=== PATIENT | female | born 1960 | race African-American/Black ===

== ENCOUNTER 2020-02-29 03:11 | Observation (INO) ==
[2020-02-29] MEDS ORDERED: SODIUM CHLORIDE 0.9% 1,000 ML IV STA (03:35)
[2020-02-29] MEDS ORDERED: ALUM/MAG/SIMETH/LIDO VISC 1:1 30 ML BOTTLE PO ONE (04:04)
[2020-02-29] MEDS ORDERED: ALUM/MAG/SIMETH/LIDO VISC 1:1 30 ML BOTTLE PO STA (04:07)
[2020-02-29 04:09] LABS: Basophils % 0.3 % (0.0-0.8); Eosinophils % 0.3 % (0.00-10.9); Hematocrit 34.5 VOL% (35.7-47.0); Hemoglobin 10.9 GM/DL (12.0-16.0); Immature Granulocytes % 0.3 %; Immature Granulocytes Absolute 0.03 #; Lymphocytes # 1.6 10*3/uL (1.4-4.0); Lymphocytes % 17.6 % (21.3-54.2); Mean Corpuscular HGB Conc 31.6 GM/DL (32-36); Mean Corpuscular Volume 73.6 FL (87-102); Mean Platelet Volume 10.6 FL (9.6-12.0); Monocytes % 8.4 % (1.7-12.7); Neutrophils % 73.1 % (38.7-73.9); Platelet Count 191 T/CUMM (130-400); Red Blood Count 4.69 MC/CUMM (3.8-5.5); Red Cell Distribution Width 15.4 % (9.3-17.3); White Blood Count 9.2 T/CUMM (4-12)
[2020-02-29 04:30] LABS: Alanine Aminotransferase 41 U/L (13-56); Albumin 3.5 G/DL (3.4-5.0); Alkaline Phosphatase 74 U/L (45-117); Aspartate Amino Transferase 35 U/L (0-37); Bilirubin,Total < 0.39 MG/DL (0.2-1.0); Blood Urea Nitrogen 15 MG/DL (7-18); Calcium 8.4 MG/DL (8.5-10.1); Estimated Glom Filtration Rate 91 ML/MIN; Glucose 121 MG/DL (74-106); Osmolality,Calculated 276.7 MOS/KG (273-304); Total Protein 6.7 G/DL (6.4-8.3)
[2020-02-29 04:33] LABS: INR 1.1; PT Patient Result 11.4 SECS (9.8-11.9)
[2020-02-29] MEDS ORDERED: NITROGLYCERIN SL 0.4 MG TABLET SL STA (04:54)
[2020-02-29 04:59] LABS: Lymphocytes 14 % (20-55); Segmented Neutrophils 79 % (50-85); Total Cells Counted 100
[2020-02-29] MEDS ORDERED: MAGNESIUM GLUCONATE 500 MG TABLET PO ONE (05:00)
[2020-02-29 05:01] LABS: Anisocytosis 1+; Platelet Estimate Normal; Target Cells Few
[2020-02-29] MEDS ORDERED: ALUM/MAG/SIMETH/LIDO VISC 1:1 30 ML BOTTLE PO PRN (08:39)
[2020-02-29] MEDS ORDERED: GLUCAGON 1 MG VIAL IM PRN (08:39)
[2020-02-29] MEDS ORDERED: NITROGLYCERIN SL 0.4 MG TABLET SL PRN (08:39)
[2020-02-29] MEDS ORDERED: ONDANSETRON 4 MG/2 ML VIAL IV PRN (08:39)
[2020-02-29] MEDS ORDERED: DEXTROSE 10% 250 ML BAG IV PRN (08:39)
[2020-02-29] MEDS ORDERED: ACETAMINOPHEN 325 MG TABLET PO PRN (08:39)
[2020-02-29] MEDS ORDERED: MAGNESIUM SULF RIDER 2 GM in PREMIX 1 EACH IV PRN (08:39)
[2020-02-29] MEDS ORDERED: MAGNESIUM SULF RIDER 4 GM in PREMIX 1 EACH IV PRN (08:39)
[2020-02-29 09:15] LABS: % Iron Saturation 14.6 % (18-50); Ferritin 347.9 ng/ml (8-252)
[2020-02-29] MEDS: PANTOPRAZOLE 40 MG TABLET PO SCH (09:58)
[2020-02-29] MEDS: ENOXAPARIN 40 MG/0.4 ML SYRINGE SUBCUT SCH (09:58)
[2020-02-29] MEDS ORDERED: ASPIRIN EC 325 MG TABLET PO ONE (11:46)
[2020-02-29] MEDS ORDERED: IRON SUCROSE 200 MG in SODIUM CHLORIDE 0.9% 100 ML IV ONE (12:00)
[2020-02-29] MEDS ORDERED: MORPHINE 4 MG/1 ML VIAL IV PRN (12:45)
[2020-02-29] MEDS ORDERED: KETOROLAC 30 MG/1 ML VIAL IV ONE (12:47)
[2020-02-29] MEDS: ASCORBIC ACID 500 MG TABLET PO SCH ×2 (13:20→20:48)
[2020-02-29] MEDS: ATORVASTATIN 20 MG TABLET PO SCH (13:21)
[2020-02-29] MEDS: GABAPENTIN 100 MG CAPSULE PO SCH ×2 (16:39→20:48)
[2020-02-29] MEDS: ACETAMINOPHEN 325 MG TABLET PO SCH ×2 (16:39→20:47)
[2020-03-01 07:04] LABS: Calcium 8.8 MG/DL (8.5-10.1); Osmolality,Calculated 275.4 MOS/KG (273-304); Risk Ratio 1.73; VLDL CHOLESTEROL 9.6 MG/DL
[2020-03-01 08:11] VITALS: BP 121/67
[2020-03-01] MEDS ORDERED: POTASSIUM CHLORIDE 20 MEQ TABLET PO ONE (08:27)
[2020-03-01] MEDS: ENOXAPARIN 40 MG/0.4 ML SYRINGE SUBCUT SCH (08:50)
[2020-03-01] MEDS: GABAPENTIN 100 MG CAPSULE PO SCH ×2 (08:51→18:36)
[2020-03-01] MEDS: ACETAMINOPHEN 325 MG TABLET PO SCH (08:51)
[2020-03-01] MEDS: PANTOPRAZOLE 40 MG TABLET PO SCH (08:51)
[2020-03-01] MEDS: ATORVASTATIN 20 MG TABLET PO SCH (08:51)
[2020-03-01] MEDS ORDERED: METOPROLOL TARTRATE 25 MG TABLET PO SCH (09:00)
[2020-03-01] MEDS ORDERED: ASPIRIN EC 81 MG TABLET PO SCH (09:00)
[2020-03-01] MEDS ORDERED: ASPIRIN EC 325 MG TABLET PO SCH (09:00)
== END 2020-03-01 15:31 | disposition home or self-care (01) ==
LOC: EDBD → EDUNIT# → N.ED 03:11 → N.EDINP 03:11 → N.3E 10:40
PROVIDERS: ADMIT Internal Medicine; ATTEND Internal Medicine